=== PATIENT | male | born 1955 | race Caucasian/White ===

== ENCOUNTER → 2018-04-18 | Outpatient (CLI) | payer SELFPAY ==
[2018-04-18 12:13] LABS: BASOPHILS ABSOLUTE AUTO 0.07 K/mm3 (0.00-0.23); BASOPHILS PERCENT AUTO 1 % (0-2); EOSINOPHILS PERCENT AUTO 1 % (0-6); Hematocrit 30.8 % (37.0-53.0); Hemoglobin 11.2 g/dL (13.5-17.5); IMMATURE GRAN ABSOLUTE AUTO 0.05 K/mm3 (0.00-0.10); IMMATURE GRAN PERCENT AUTO 1 % (0-1); LYMPHOCYTES ABSOLUTE AUTO 1.07 K/mm3 (0.84-5.20); LYMPHOCYTES PERCENT AUTO 10 % (21-46); MONOCYTES PERCENT AUTO 9 % (4-13); Mean Corpuscular HGB 37.5 pg (26.0-34.0); Mean Corpuscular HGB Conc 36.4 g/dL (31.5-36.5); Mean Corpuscular Volume 103 fL (80-100); Mean Platelet Volume 9.5 fL (9.1-12.4); NEUTROPHILS ABSOLUTE AUTO 8.74 K/mm3 (1.96-9.15); NEUTROPHILS PERCENT AUTO 79 % (41-73); Platelet Count 314 K/mm3 (150-400); RDW Coefficient Variation 12.1 % (11.7-14.2); RDW Standard Deviation 45.2 fL (35.1-46.3); Red Blood Cell Count 2.99 M/mm3 (4.30-5.90); White Blood Cell Count 11.03 K/mm3 (4.00-11.30)
[2018-04-18 12:26] LABS: Albumin, Blood 3.9 g/dL (3.4-5.0); Albumin/Globulin Ratio 0.7 (0.8-1.8); Bilirubin, Total 2.5 mg/dL (0.1-1.0); Bun/Creatinine Ratio 16.9 (12.0-20.0); Calcium, Blood 10.1 mg/dL (8.5-10.1); Creatinine, Blood 1.42 mg/dL (0.60-1.20); Globulin, Blood 5.5 g/dL (2.2-4.0); Total Protein, Blood 9.4 g/dL (6.4-8.2)
[2018-04-18 12:52] LABS: International Normalized Ratio 1.11; Prothrombin Time Results 11.4 Sec (9.7-11.5)
[2018-04-18 13:36] LABS: Bilirubin, Direct 1.5 mg/dL (0.0-0.3)
== END | disposition home or self-care (01) ==
LOC: LAB SHORT 12:07 → LAB EV 12:07
PROVIDERS: Physician Assistant
DX: K92.0 Hematemesis (principal); E80.6 Other disorders of bilirubin metabolism
CPT/HCPCS: 80053; 82248; 85025; 85610; 85730

== ENCOUNTER 2019-11-12 10:07 | Inpatient (IN) | payer MEDICARE ==
[~2019-11-12] VITALS: Ht 172.7 cm; Wt 78.0 kg
[2019-11-12] MEDS ORDERED: ZOLPIDEM TARTRA10 MG PO (10:28)
[2019-11-12 10:49] LABS: BASOPHILS ABSOLUTE AUTO 0.04 K/mm3 (0.00-0.23); BASOPHILS PERCENT AUTO 1 % (0-2); EOSINOPHILS ABSOLUTE AUTO 0.04 K/mm3 (0.00-0.68); EOSINOPHILS PERCENT AUTO 1 % (0-6); Hematocrit 25.1 % (37.0-53.0); Hemoglobin 8.9 g/dL (13.5-17.5); IMMATURE GRAN ABSOLUTE AUTO 0.06 K/mm3 (0.00-0.10); IMMATURE GRAN PERCENT AUTO 1 % (0-1); LYMPHOCYTES ABSOLUTE AUTO 0.89 K/mm3 (0.84-5.20); LYMPHOCYTES PERCENT AUTO 10 % (21-46); MONOCYTES ABSOLUTE AUTO 0.92 K/mm3 (0.16-1.47); MONOCYTES PERCENT AUTO 11 % (4-13); Mean Corpuscular HGB 38.4 pg (26.0-34.0); Mean Corpuscular HGB Conc 35.5 g/dL (31.5-36.5); Mean Corpuscular Volume 108 fL (80-100); Mean Platelet Volume 10.3 fL (9.1-12.4); NEUTROPHILS ABSOLUTE AUTO 6.59 K/mm3 (1.96-9.15); NEUTROPHILS PERCENT AUTO 77 % (41-73); Platelet Count 166 K/mm3 (150-400); RDW Coefficient Variation 17.6 % (11.7-14.2); RDW Standard Deviation 70.3 fL (35.1-46.3); Red Blood Cell Count 2.32 M/mm3 (4.30-5.90); White Blood Cell Count 8.54 K/mm3 (4.00-11.30)
[2019-11-12 11:09] LABS: Alanine Aminotransfer (ALT/SGP 57 U/L (12-78); Albumin, Blood 2.2 g/dL (3.4-5.0); Albumin/Globulin Ratio 0.4 (0.8-1.8); Alk Phos 344 U/L (50-136); Anion Gap 12 mmol/L (6-16); Aspartate Aminotrans (AST/SGOT 197 U/L (12-37); Bilirubin, Total 15.1 mg/dL (0.1-1.0); Blood Urea Nitrogen 25 mg/dL (8-24); CO2, Blood 21 mmol/L (21-32); Calcium, Blood 8.4 mg/dL (8.5-10.1); Chloride, Blood 99 mmol/L (98-108); Creatinine, Blood 1.39 mg/dL (0.60-1.20); Globulin, Blood 5.5 g/dL (2.2-4.0); Glomerular Filtration Rate 54 (60-); Glucose, Blood 131 mg/dL (70-99); Potassium, Blood 4.2 mmol/L (3.5-5.5); Sodium, Blood 132 mmol/L (136-145); Total Protein, Blood 7.7 g/dL (6.4-8.2)
[2019-11-12 11:51] LABS: Prothrombin Time Results 14.8 Sec (9.7-11.5)
[2019-11-12 11:52] LABS: International Normalized Ratio 1.41
[2019-11-12 16:03] LABS: Hematocrit 22.6 % (37.0-53.0); Hemoglobin 7.8 g/dL (13.5-17.5)
[2019-11-12 16:19] LABS: International Normalized Ratio 1.47; Prothrombin Time Results 15.4 Sec (9.7-11.5)
[2019-11-12] MEDS ORDERED: LISI5 PO (16:21)
--- NOTE | 2019-11-12 18:54 | NUR ---
PT STATES THAT HE IS TOO TIRED TO SPEAK WITH SONJAGUAR, FROM [place], AND GIVES VERBAL CONSENT FOR NURSE TO UPDATE SON ON HIS STATUS. PLEASE CALL JAGUAR REILLY, , FOR ANY CHANGES IN PT STATUS.
--- NOTE | 2019-11-12 19:20 | NUR ---
PATIENT REFUSING SCDS
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
[2019-11-12 21:21] LABS: Hematocrit 22.2 % (37.0-53.0); Hemoglobin 7.7 g/dL (13.5-17.5)
--- NOTE | 2019-11-12 21:44 | NUR ---
ASSUMED CARE OF PATIENT AT APPROXIMATELY 1905 FROM STEPHANIE Morgan RN. PATIENT ALERT AND ORIENTED X4; PATIENT APPEARS ANXIOUS; IRRITABLE; ASKING FOR SLEEP AID BUT REPORTS DR. DUNCAN DOESNT WANT HIM TO HAVE HIS AMBIEN TO BEEN TOO DROWSY FOR PARACENTESIS IN AM; NO OTHER ORDERS; CALLED LEAD DENTAL ASSISTANT JOSELITO; GOING TO MEDICATE PER CIWA ORDERS; NO SLEEP AID ORDERED. CIWA 8; TREMOR THAT PATIENT REPORTS HAS BEEN OCCURING FOR 3-4 WEEKS SINCE PATIENT HAS NOT BEEN EATING WELL; CAN TOLERATE LIQUIDS BUT VOMITS MOST FOOD UP; REPORTS LAST DRINK 3-4 WEEKS AGO. SKIN IS JAUNDICED T/O. NPO FOR PARACENTESIS IN AM. NS INFUSING PER ORDER; OCTREOTIDE INFUSING PER ORDER. DR. STREET PUT ORDER IN FOR 1 UNIT RBC. ONE ASSIST TO BATHROOM; REPORT BLOOD IN URINE AND SMALL BM; FLUSHED BEFORE STAFF CAN SEE IT. PATIENT DENIES PAIN, NUMBNESS, TINGLING, DIZZINESS OR NAUSEA. PATIENT CURRENTLY RESTING IN BED; CALL LIGHT IN REACH; BED IN LOWEST POSISTION; BED ALARM ON; WILL CONTINUE TO MONITOR AND ASSESS UNTIL END OF SHIFT.
--- NOTE | 2019-11-12 22:29 | NUR ---
DR. STREET PUT A NURSING IV ORDER FOR 1 RBC; CALLED BLOOD BANK BUT NO ORDER FOR LAB BLOOD BANK TO GIVE; CALLED CHANDNI YEE TO CONFIRM; ORDER TO PUT RBC UNDER DR. STREET AND GIVEN UNIT RBC.
[2019-11-13 03:17] LABS: Hematocrit 23.3 % (37.0-53.0)
[2019-11-13 03:18] LABS: BASOPHILS ABSOLUTE AUTO 0.02 K/mm3 (0.00-0.23); BASOPHILS PERCENT AUTO 0 % (0-2); EOSINOPHILS PERCENT AUTO 2 % (0-6); Hematocrit 23.2 % (37.0-53.0); IMMATURE GRAN ABSOLUTE AUTO 0.02 K/mm3 (0.00-0.10); IMMATURE GRAN PERCENT AUTO 0 % (0-1); LYMPHOCYTES ABSOLUTE AUTO 0.64 K/mm3 (0.84-5.20); LYMPHOCYTES PERCENT AUTO 12 % (21-46); MONOCYTES ABSOLUTE AUTO 0.57 K/mm3 (0.16-1.47); MONOCYTES PERCENT AUTO 11 % (4-13); Mean Corpuscular HGB Conc 34.5 g/dL (31.5-36.5); Mean Corpuscular Volume 107 fL (80-100); NEUTROPHILS ABSOLUTE AUTO 4.06 K/mm3 (1.96-9.15); NEUTROPHILS PERCENT AUTO 75 % (41-73); Platelet Count 102 K/mm3 (150-400); RDW Coefficient Variation 19.1 % (11.7-14.2); RDW Standard Deviation 74.8 fL (35.1-46.3); Red Blood Cell Count 2.16 M/mm3 (4.30-5.90); White Blood Cell Count 5.41 K/mm3 (4.00-11.30)
[2019-11-13 03:43] LABS: Albumin, Blood 2.6 g/dL (3.4-5.0); Albumin/Globulin Ratio 0.6 (0.8-1.8); Bilirubin, Total 14.2 mg/dL (0.1-1.0); Bun/Creatinine Ratio 19.1 (12.0-20.0); Calcium, Blood 7.7 mg/dL (8.5-10.1); Creatinine, Blood 1.31 mg/dL (0.60-1.20); Globulin, Blood 4.1 g/dL (2.2-4.0); Potassium, Blood 5.1 mmol/L (3.5-5.5); Total Protein, Blood 6.7 g/dL (6.4-8.2)
--- NOTE | 2019-11-13 06:18 | NUR ---
1 RBC INFUSED; HEMOGLOBIN UP TO 8 THIS AM. PROTONIX GTT STARTED PER ORDER. CIWA 8-9 THROUGHOUT NIGHT. VSS. WILL CONTINUE TO MONITOR AND ASSESS UNTIL END OF SHIFT.
--- NOTE | 2019-11-13 09:06 | NUR ---
pt left for paracentesis will medicate when he returns
[2019-11-13 09:23] LABS: Hematocrit 24.5 % (37.0-53.0); Hemoglobin 8.3 g/dL (13.5-17.5)
[2019-11-13 10:12] LABS: Body Fluid WBC Count 90 /mm3 (0-999)
[2019-11-13 10:21] LABS: Albumin, Body Fluid 0.4 g/dL; Protein, Body Fluid 1.1 g/dL
[2019-11-13 10:28] LABS: Appearance, Body Fluid Clear (Clear); Color, Body Fluid Yellow (None-Yellow); RBC Count, Body Fluid 81 /mm3 (0-0)
[2019-11-13 10:59] LABS: Total Cell Count, Body Fluid 100
--- NOTE | 2019-11-13 16:19 | NUR ---
PT TO DAY SUGERY
--- NOTE | 2019-11-13 16:34 | NUR ---
History, Chart, Medications and Allergies reviewed before start of procedure. Lungs clear T/O to Auscultation. Patient confirms NPO status and agrees with scheduled surgery. Pre-Op teaching done. Pt verbalizes understanding.
--- NOTE | 2019-11-13 17:45 | NUR ---
11/13/19 1745 PRATIBHA TRUONG History, Chart, Medications and Allergies reviewed before start of procedure. 3-LEAD EKG REVIEWED WITH PHYSICIAN PRIOR TO START OF PROCEDURE.O2 VIA N/C INTACT THROUGHOUT SEDATION/PROCEDURE. MONITOR INTACT WITH CONTINUOUS PULSE OXIMETRY AND INTERMITTENT BP. MAC WITH DR. JOHNSON.
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
--- NOTE | 2019-11-13 19:30 | NUR ---
RECEIVED REPORT FROM BOONE BHANDARI. ASSUMED CARE OF PT. IN NO ACUTE DISTRESS, RESTING COMFORTABLY AT THIS TIME. DENIES ANY NEEDS AT THIS TIME. CALL LIGHT AND POSSESSIONS IN REACH, BED ALARM ON. WILL CONTINUE TO MONITOR.
[2019-11-14 02:11] LABS: HBSAG SCREEN Negative (Negative); HEP A AB, IGM Negative (Negative); HEP B CORE AB, IGM Negative (Negative); HEP C VIRUS AB <0.1 (0.0-0.9)
[2019-11-14 03:11] LABS: HBSAG SCREEN Negative (Negative); HEP B CORE AB, TOT Negative (Negative); HEP C VIRUS AB <0.1 (0.0-0.9)
[2019-11-14 05:39] LABS: BASOPHILS ABSOLUTE AUTO 0.05 K/mm3 (0.00-0.23); BASOPHILS PERCENT AUTO 1 % (0-2); EOSINOPHILS ABSOLUTE AUTO 0.04 K/mm3 (0.00-0.68); EOSINOPHILS PERCENT AUTO 1 % (0-6); Hematocrit 23.3 % (37.0-53.0); Hemoglobin 7.8 g/dL (13.5-17.5); IMMATURE GRAN ABSOLUTE AUTO 0.02 K/mm3 (0.00-0.10); IMMATURE GRAN PERCENT AUTO 0 % (0-1); LYMPHOCYTES PERCENT AUTO 13 % (21-46); MONOCYTES ABSOLUTE AUTO 0.48 K/mm3 (0.16-1.47); MONOCYTES PERCENT AUTO 10 % (4-13); Mean Corpuscular HGB 36.8 pg (26.0-34.0); Mean Corpuscular HGB Conc 33.5 g/dL (31.5-36.5); Mean Platelet Volume 10.5 fL (9.1-12.4); NEUTROPHILS PERCENT AUTO 75 % (41-73); Platelet Count 106 K/mm3 (150-400); RDW Standard Deviation 76.3 fL (35.1-46.3); Red Blood Cell Count 2.12 M/mm3 (4.30-5.90); White Blood Cell Count 4.79 K/mm3 (4.00-11.30)
[2019-11-14 05:49] LABS: Mean Corpuscular Volume 110 fL (80-100)
[2019-11-14 05:59] LABS: Alanine Aminotransfer (ALT/SGP 35 U/L (12-78); Albumin, Blood 3.2 g/dL (3.4-5.0); Albumin/Globulin Ratio 0.8 (0.8-1.8); Alk Phos 208 U/L (50-136); Anion Gap 7 mmol/L (6-16); Aspartate Aminotrans (AST/SGOT 108 U/L (12-37); Bilirubin, Total 13.3 mg/dL (0.1-1.0); Blood Urea Nitrogen 26 mg/dL (8-24); Bun/Creatinine Ratio 24.8 (12.0-20.0); CO2, Blood 22 mmol/L (21-32); Calcium, Blood 8.1 mg/dL (8.5-10.1); Chloride, Blood 106 mmol/L (98-108); Creatinine, Blood 1.05 mg/dL (0.60-1.20); Globulin, Blood 3.8 g/dL (2.2-4.0); Glomerular Filtration Rate >60 (60-); Glucose, Blood 189 mg/dL (70-99); Potassium, Blood 4.4 mmol/L (3.5-5.5); Sodium, Blood 135 mmol/L (136-145)
--- NOTE | 2019-11-14 06:43 | NUR ---
SPOKE TO DR. LLOYD REGARDING PT'S H&H LEVELS. NO NEW ORDERS RECEIVED AT THIS TIME.
--- NOTE | 2019-11-14 07:53 | NUR ---
PT RESTING IN BED COMFORTABLY, IN NO ACUTE DISTRESS, WAS MONITORED EVERY 1-2 HOURS WITH NEEDS MET, DENIES ANY NEEDS AT THIS TIME. VS STABLE T/O SHIFT. CALL LIGHT AND POSSESSIONS IN REACH, PT UP TO BATHROOM AT THIS TIME. FAMILY AT THE BEDSIDE. REPORTED OFF TO DAYSHIFT RN.
--- NOTE | 2019-11-14 13:56 | NUR ---
Spiritual care visit conducted. Patient is lying bed and alert. 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 I try to point patient to reasons for hope and to be here in the moments he has and to celebrate small things but patient is not ready for that yet. I listen empathically, normalize patient's experience and provide prayer. Patient voiced appreciation for the prayer. I will continue to remain available to patient and family.
--- NOTE | 2019-11-14 15:05 | NUR ---
PT TO MRI c KALEB FROM XRAY
--- NOTE | 2019-11-14 18:41 | NUR ---
SHIFT NOTE PT HAS HAD NEGATIVE CIWA T/O THE SHIFT. PT ALERT AND INDEPENDANT WITH 1 PERSON ASSIST IN ROOM. PT HAS BEEN TO MRI THIS EVENING. PT WAS CHANGED TO MEDICAL STATUS, UPON ATTEMPTING REPORT TO MEDICAL FLOOR PT HAD RHYTHM CHANGE TO AFIB FROM SINUS RHYTHM, NEW ORDERS WERE OBTRAINED FRO FIOR DRIP FROM DR LLOYD PT WILL NOTBE TRANSFERED TO MEDICAL FLOOR
--- NOTE | 2019-11-14 19:20 | NUR ---
RECEIVED REPORT FROM BOONE BHANDARI. ASSUMED CARE OF PT. IN NO ACUTE DISTRESS AT THIS TIME. DENIES ANY NEEDS AT THIS TIME, CALL LIGHT AND POSSESSIONS IN REACH, BED ALARM ACTIVATED, WILL CONTINUE TO MONITOR.
[2019-11-14 21:16] LABS: Magnesium, Blood 1.5 mg/dL (1.6-2.4)
[2019-11-14 21:18] LABS: Phosphorus, Blood 1.3 mg/dL (2.5-4.9); Thyroid Stimulating Hormone 0.456 uIU/mL (0.360-4.800)
[2019-11-15 05:12] LABS: International Normalized Ratio 1.45; Prothrombin Time Results 15.2 Sec (9.7-11.5)
[2019-11-15 05:20] LABS: Alanine Aminotransfer (ALT/SGP 33 U/L (12-78); Albumin, Blood 2.9 g/dL (3.4-5.0); Albumin/Globulin Ratio 0.7 (0.8-1.8); Alk Phos 210 U/L (50-136); Anion Gap 8 mmol/L (6-16); Aspartate Aminotrans (AST/SGOT 106 U/L (12-37); Bilirubin, Direct 9.5 mg/dL (0.0-0.3); Bilirubin, Indirect 3.6 mg/dL (0.1-0.7); Bilirubin, Total 13.1 mg/dL (0.1-1.0); Blood Urea Nitrogen 20 mg/dL (8-24); Bun/Creatinine Ratio 18.7 (12.0-20.0); CO2, Blood 21 mmol/L (21-32); Calcium, Blood 7.9 mg/dL (8.5-10.1); Chloride, Blood 108 mmol/L (98-108); Creatinine, Blood 1.07 mg/dL (0.60-1.20); Globulin, Blood 4.1 g/dL (2.2-4.0); Glomerular Filtration Rate >60 (60-); Glucose, Blood 149 mg/dL (70-99); Magnesium, Blood 2.1 mg/dL (1.6-2.4); Phosphorus, Blood 2.7 mg/dL (2.5-4.9); Potassium, Blood 4.1 mmol/L (3.5-5.5); Sodium, Blood 137 mmol/L (136-145)
--- NOTE | 2019-11-15 06:40 | NUR ---
SPOKE TO DR. MUNOZ REGARDING PT'S CALCIUM LEVELS. NO ORDERS RECEIVED AT THIS TIME. PHYSICIAN TO REVIEW PT CHART AND ENTER ORDERS NEEDED.
--- NOTE | 2019-11-15 08:04 | NUR ---
PT RESTING IN BED COMFORTABLY, NO S/S ACUTE DISTRESS NOTED. WAS MONITORED EVERY 1-2 HOURS WITH NEEDS MET. DENIES ANY NEEDS AT THIS TIME. CALL LIGHT AND POSSESSIONS IN REACH, BED IN LOW POSITION WITH BED ALARM ACTIVATED. REPORTED OFF TO BOONE BHANDARI.
[2019-11-15] MEDS ORDERED: B-1100 MG PO (11:12)
[2019-11-15] MEDS ORDERED: SUCR1 PO (11:12)
[2019-11-15] MEDS ORDERED: FOLI1 PO (11:13)
[2019-11-15] MEDS ORDERED: Florastor250 MG PO (11:13)
[2019-11-15] MEDS ORDERED: THERA1 EACH PO (11:13)
[2019-11-15] MEDS ORDERED: FURO20 PO (11:14)
[2019-11-15] MEDS ORDERED: Cipro500 MG PO (11:14)
[2019-11-15] MEDS ORDERED: SPIR50 PO (11:15)
[2019-11-15] MEDS ORDERED: NADO40 PO (11:15)
[2019-11-15] MEDS ORDERED: PANT40 PO (11:15)
--- NOTE | 2019-11-15 12:30 | NUR ---
Echocardiogram completed.
--- NOTE | 2019-11-15 13:40 | NUR ---
PT OTD WITH PCT CARLA. PT EXPRESSED UNDERSTANDING OF EXTENSIVE D/C TEACHING. PT DENIES AN FURTHER QUESTIONS ABOUT MEDICATIONS OR HIS CONDITION. PT AND FAMILY BOTH EXPRESED UNDERSTANDING
== END 2019-11-15 13:27 | disposition home or self-care (01) | DRG 369 ==
LOC: ER 10:07 → PCU 15:04
PROVIDERS: Emergency Medicine; Student in an Organized Health Care Education/Training Program; ADMIT Internal Medicine
PROC: 0DB68ZZ Excision of Stomach, Via Natural or Artificial Opening Endoscopic (ICD-10-PCS; principal; 2019-11-13 16:30)
PROC: 06L38CZ Occlusion of Esophageal Vein with Extraluminal Device, Via Natural or Artificial Opening Endoscopic (ICD-10-PCS; 2019-11-13 16:30)
DX: I85.01 Esophageal varices with bleeding (principal); K76.6 Portal hypertension; I10 Essential (primary) hypertension; E78.5 Hyperlipidemia, unspecified; K31.7 Polyp of stomach and duodenum; F10.10 Alcohol abuse, uncomplicated; K70.31 Alcoholic cirrhosis of liver with ascites; E83.39 Other disorders of phosphorus metabolism; E83.42 Hypomagnesemia; I48.0 Paroxysmal atrial fibrillation; K76.9 Liver disease, unspecified; Z87.891 Personal history of nicotine dependence
CPT/HCPCS: 36415; 36430; 49083; 74177; 74183; 80053; 80074; 82042; 82105; 82140; 82248; 83690; 83735; 84100; 84157; 84443; 85014; 85018; 85025; 85610; 85730; 86317; 86704; 86708; 86803; 86850; 86900; 86901; 86923; 87340; 89051; 93005; 93010; 93306; 99285-25; A9270-GY; A9581; C9113; J0696; J2060; J2354; J2704; J3475; J7030; J7050; J7060; J7120; P9016; P9046; Q9967

== ENCOUNTER 2020-03-16 08:41 | Day surgery (SDC) | payer MEDICARE ==
[~2020-03-16] VITALS: Ht 170.2 cm; Wt 69.5 kg
[~2020-03-16 08:41] MED LIST: B-1100 MG PO; Cipro500 MG PO; FOLI1 PO; FURO20 PO; Florastor250 MG PO; LISI5 PO; NADO40 PO; PANT40 PO; SPIR50 PO; SUCR1 PO; THERA1 EACH PO; ZOLPIDEM TARTRA10 MG PO
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
--- NOTE | 2020-03-16 11:14 | NUR ---
03/16/20 1114 Anais Rehman PT. AT [facility] AT 2:00AM. PT. PROCEDURE WAS SCHEDULED FOR 914. PT. ARRIVED LATE. TAKEN INTO PREOP AT 848. UPPER ENDO POSTPONED TIL 10 AM R/T EATING. POSTPONED BY DR. CHOWDHURY & DR. DUNCAN. PT. WAS INFORMED OF ALL OF THIS. CALL LIGHT WAS AT PT. SIDE DURING WAIT.
[2020-04-27] MEDS ORDERED: SUCR1 PO (11:27)
[2020-04-27] MEDS ORDERED: SPIR50 PO (11:28)
== END 2020-03-16 10:55 | disposition home or self-care (01) ==
LOC: ORSCSDS 08:41
PROVIDERS: Student in an Organized Health Care Education/Training Program
PROC: 0DB68ZX Excision of Stomach, Via Natural or Artificial Opening Endoscopic, Diagnostic (ICD-10-PCS; principal; 2020-03-16 09:15)
PROC: 06L38CZ Occlusion of Esophageal Vein with Extraluminal Device, Via Natural or Artificial Opening Endoscopic (ICD-10-PCS; principal; 2020-03-16 09:15)
DX: K74.60 Unspecified cirrhosis of liver (principal); K29.70 Gastritis, unspecified, without bleeding; I85.00 Esophageal varices without bleeding; I10 Essential (primary) hypertension; Z79.899 Other long term (current) drug therapy
CPT/HCPCS: 88305; 88341; 88342; J2405; J2704; J7120

== ENCOUNTER 2020-07-13 09:58 | Day surgery (SDC) | payer MEDICARE ==
[~2020-07-13] VITALS: Ht 172.7 cm; Wt 64.5 kg
[~2020-07-13 09:58] MED LIST changes: +SULFAMETHOXAZO1 EACH PO
--- NOTE | 2020-07-13 11:01 | NUR ---
07/13/20 1101 Liya Pulliam SIMETHICONE USED DURING PROCEDURE.
--- NOTE | 2020-07-13 12:08 | NUR ---
07/13/20 1208 Jesenia Riley V PT DID NOT WANT ANYTHING TO DRINK PRIOR TO D/C.
== END 2020-07-13 12:08 | disposition home or self-care (01) ==
LOC: ORSCSDS 09:58
PROVIDERS: Student in an Organized Health Care Education/Training Program
PROC: 0DJ08ZZ Inspection of Upper Intestinal Tract, Via Natural or Artificial Opening Endoscopic (ICD-10-PCS; principal; 2020-07-13 11:00)
PROC: 0DBH8ZX Excision of Cecum, Via Natural or Artificial Opening Endoscopic, Diagnostic (ICD-10-PCS; principal; 2020-07-13 11:00)
PROC: 0DBN8ZX Excision of Sigmoid Colon, Via Natural or Artificial Opening Endoscopic, Diagnostic (ICD-10-PCS; principal; 2020-07-13 11:00)
PROC: 0DBM8ZX Excision of Descending Colon, Via Natural or Artificial Opening Endoscopic, Diagnostic (ICD-10-PCS; principal; 2020-07-13 11:00)
DX: Z12.11 Encounter for screening for malignant neoplasm of colon (principal); K74.60 Unspecified cirrhosis of liver; I85.10 Secondary esophageal varices without bleeding; Z13.810 Encounter for screening for upper gastrointestinal disorder; D12.0 Benign neoplasm of cecum; K63.5 Polyp of colon; K76.6 Portal hypertension; K31.89 Other diseases of stomach and duodenum; K57.30 Diverticulosis of large intestine without perforation or abscess without bleeding; I10 Essential (primary) hypertension; Z79.899 Other long term (current) drug therapy
CPT/HCPCS: 88305; J2704; J7120

== ENCOUNTER → 2020-08-12 | Outpatient (CLI) | payer MEDICARE ==
[2020-08-12 10:44] LABS: Source, Urine Voided
[2020-08-12 11:17] LABS: Albumin, Blood 3.7 g/dL (3.4-5.0); Anion Gap 12 mmol/L (6-16); Blood Urea Nitrogen 20 mg/dL (8-24); Bun/Creatinine Ratio 17.9 (12.0-20.0); CO2, Blood 22 mmol/L (21-32); Calcium, Blood 9.1 mg/dL (8.5-10.1); Chloride, Blood 107 mmol/L (98-108); Creatinine, Blood 1.12 mg/dL (0.60-1.20); Glomerular Filtration Rate >60 (60-); Glucose, Blood 117 mg/dL (70-99); Phosphorus, Blood 3.5 mg/dL (2.5-4.9); Potassium, Blood 3.9 mmol/L (3.5-5.5); Sodium, Blood 141 mmol/L (136-145)
[2020-08-12 12:32] LABS: Appearance, Urine Clear (Clear); Bilirubin, Urine Neg (Neg); Blood, Urine Neg (Neg); Color, Urine Yellow (P-Yellow); Glucose Qualitative, Urine Neg (Normal); Ketones, Urine Neg (Neg); Leukocyte Esterase, Urine Neg (Neg); Nitrite, Urine Neg (Neg); Protein, Urine Neg (Neg); Urobilinogen, Urine 1+ (Normal)
[2020-08-12 15:29] LABS: Protein, Urine Random 15.9 mg/dL (0.0-11.9)
== END | disposition home or self-care (01) ==
LOC: LAB EV 10:35 → LAB SHORT 10:35
PROVIDERS: Internal Medicine
DX: N18.2 Chronic kidney disease, stage 2 (mild) (principal)
CPT/HCPCS: 36415; 80069; 81003; 82570; 84156

== ENCOUNTER 2022-09-20 06:08 | Day surgery (SDC) | payer MEDICARE ==
[~2022-09-20] VITALS: Ht 172.7 cm; Wt 72.0 kg
[~2022-09-20 06:08] MED LIST changes: +SILD50TA; +ZOLP10 PO
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
--- NOTE | 2022-09-20 10:28 | NUR ---
DRESSING CLEAN DRY AND INTACT. PT CONTINUES TO NOT HAVE PAIN. NO COMPLAINTS. PT DISCHARGED VIA W/C. TAKEN TO [facility] BY ORIANA SHOOK TO MEET HIS S/O.
== END 2022-09-20 22:41 | disposition home or self-care (01) ==
LOC: ORSCMMR 06:08 → ORD 07:30 → ORSCMMR 07:30
PROVIDERS: Surgery
PROC: 0YU60JZ Supplement Left Inguinal Region with Synthetic Substitute, Open Approach (ICD-10-PCS; principal; 2022-09-20 07:30)
DX: K40.90 Unilateral inguinal hernia, without obstruction or gangrene, not specified as recurrent (principal); I10 Essential (primary) hypertension; K74.60 Unspecified cirrhosis of liver; Z79.899 Other long term (current) drug therapy
CPT/HCPCS: 93005; 93010; C1781; J0690; J1100; J2250; J2405; J2704; J2795; J3010; J7120

== ENCOUNTER 2023-07-07 13:05 | Day surgery (SDC) | payer MEDICARE ==
[~2023-07-07] VITALS: Ht 172.7 cm; Wt 71.9 kg
[2023-07-07] MEDS ORDERED: LISI20 (13:33)
[2023-07-07 15:48] VITALS: BP 115/67
== END 2023-07-07 15:46 | disposition home or self-care (01) ==
LOC: ORSCSDS 13:05
PROVIDERS: Specialist
PROC: 0DJ08ZZ Inspection of Upper Intestinal Tract, Via Natural or Artificial Opening Endoscopic (ICD-10-PCS; principal; 2023-07-07 14:15)
DX: K70.30 Alcoholic cirrhosis of liver without ascites (principal); I85.10 Secondary esophageal varices without bleeding; K76.6 Portal hypertension; I48.0 Paroxysmal atrial fibrillation; K31.89 Other diseases of stomach and duodenum; Z79.899 Other long term (current) drug therapy
CPT/HCPCS: J2001; J2704; J7120